=== PATIENT | male | born 1955 | race Caucasian/White ===

== ENCOUNTER 2017-04-15 16:41 | Emergency (ER) | payer BC ==
[~2017-04-15] VITALS: Ht 175.3 cm; Wt 112.0 kg
[2017-04-15] MEDS ORDERED: SODIUM CHLORIDE 0.9% 1,000ML IVBOLUS ONE (17:00)
[2017-04-15] MEDS ORDERED: AMPICILLIN/SULBACTAM 3 GM in SODIUM CHLORIDE 0.9% 100 ML IV ONE (17:00)
[2017-04-15] MEDS ORDERED: SODIUM CHLORIDE FLUSH 10ML SYR IVF ONE (17:00)
[2017-04-15] MEDS ORDERED: KETOROLAC 30 MG/1 ML IVPush ONE (17:00)
[2017-04-15 17:47] LABS: BLOOD UREA NITROGEN 22 mg/dL (7-18)
[2017-04-15] MEDS ORDERED: KETOROLAC 30 MG/1 ML ONE (17:56)
[2017-04-15] MEDS ORDERED: OMNIPAQUE 350 MG/ML, 75ML BOTTLE ONE (18:38)
[2017-04-15 19:15] VITALS: BP 116/67
== END 2017-04-15 19:24 | disposition home or self-care (01) ==
LOC: ED 17:37
DX: L03.211 Cellulitis of face (principal); I10 Essential (primary) hypertension; E11.9 Type 2 diabetes mellitus without complications
CPT/HCPCS: 36415; 70487; 80048; 82040; 85025; 96365; 96375; 99285; J0295; J1885; J7030; Q9967